=== PATIENT | female | born 1990 | race Caucasian/White ===

== ENCOUNTER 2018-07-10 13:32 | Inpatient (IN) | payer OTHER ==
[~2018-07-10] VITALS: Ht 154.9 cm; Wt 59.6 kg
[2018-07-10] MEDS ORDERED: SODIUM CHLORIDE 0.9% 1,000 ML IV ONE (14:45)
[2018-07-10] MEDS ORDERED: LORAZEPAM 0.5MG TABLET PO ONE (14:45)
[2018-07-10] MEDS ORDERED: CYANOCOBALAMIN 1000MCG/ML VIAL IM ONE (14:45)
[2018-07-10 15:44] LABS: HEMATOCRIT. 40.9 % (36.0-48.0); HEMOGLOBIN. 13.9 g/dL (12.0-16.0); MEAN PLATELET VOLUME 8.9 fl (7.4-10.4); PLATELET 129 x1000/uL (130-400); RED BLOOD CELL COUNT 4.22 mill/uL (4.2-5.4); RED CELL DISTRIBUTION WIDTH 14.2 % (11.6-14.6)
[2018-07-10 15:50] LABS: CHLORIDE 99 mEq/L (98-107)
[2018-07-10 15:53] LABS: ETHANOL BLOOD < 10 mg/dL
[2018-07-10] MEDS ORDERED: ONDANSETRON HCL 4MG/2ML INJ ONE (15:59)
[2018-07-10] MEDS ORDERED: LORAZEPAM 2MG/ML CPJ IV ONE (16:00)
[2018-07-10] MEDS ORDERED: ONDANSETRON HCL 4MG/2ML INJ IV ONE (16:00)
[2018-07-10 16:21] LABS: PLATELET ESTIMATE SLIGHTLY DECREASED
[2018-07-10 16:26] LABS: HEPATITIS B SURFACE ANTIGEN NEGATIVE
[2018-07-10 16:56] LABS: HEPATITIS A AB IGM NEGATIVE (NEGATIVE)
[2018-07-10] MEDS ORDERED: LACTULOSE 20G/30ML UDC PO ONE (17:00)
[2018-07-10] MEDS ORDERED: ONDANSETRON HCL 4MG/2ML INJ IV PRN (17:45)
[2018-07-10] MEDS ORDERED: DIPHENHYDRAMINE 50MG/ML VIAL IV PRN (17:45)
[2018-07-10 22:44] LABS: CREATINE KINASE 145 IU/L (26-192)
[2018-07-10] MEDS ORDERED: LACTULOSE 20G/30ML UDC PO NR (22:55)
[2018-07-10] MEDS: SODIUM CHLORIDE 0.9% 1,000 ML IV SCH (23:12)
[2018-07-11 01:02] LABS: CLARITY URINE CLEAR (CLEAR); COLOR URINE YELLOW (YELLOW); KETONES URINE TRACE (NEGATIVE); LEUKOCYTE ESTERASE URINE 1+ (NEGATIVE); NITRITE URINE NEGATIVE (NEGATIVE); OCCULT BLOOD URINE NEGATIVE (NEGATIVE); PH URINE 8.5 (4.5-8.0); PROTEIN URINE 1+ (NEGATIVE); SPECIFIC GRAVITY URINE 1.024 (1.005-1.030)
[2018-07-11 01:10] LABS: *AMPHETAMINES SCREEN URINE NEGATIVE (NEGATIVE); *BARBITURATES SCREEN URINE NEGATIVE (NEGATIVE); *BENZODIAZEPINES SCREEN URINE NEGATIVE (NEGATIVE); *COCAINE SCREEN URINE NEGATIVE (NEGATIVE)
[2018-07-11 01:11] LABS: METHADONE URINE SCREEN NEGATIVE (NEGATIVE)
[2018-07-11 01:13] LABS: CANNABINOID URINE SCREEN NEGATIVE (NEGATIVE); OPIATES URINE SCREEN NEGATIVE (NEGATIVE); PHENCYCLIDINE URINE SCREEN NEGATIVE (NEGATIVE)
[2018-07-11] MEDS: LORAZEPAM 2MG/ML CPJ IV PRN ×4 (02:19→22:24)
[2018-07-11 06:00] LABS: BASOPHILS % 0.5 % (0.0-2.0); EOSINOPHILS % 0.5 % (0.0-5.0); HEMOGLOBIN. 12.5 g/dL (12.0-16.0); LYMPHOCYTES % 7.9 % (20.0-50.0); MEAN CORPUSCULAR HEMOGLOBIN 32.9 pg (28.0-32.0); MEAN CORPUSCULAR VOLUME 97.5 fL (81.0-99.0); MEAN PLATELET VOLUME 9.1 fl (7.4-10.4); MONOCYTES % 5.2 % (2.0-8.0); NEUTROPHILS % 85.9 % (40.0-76.0); PLATELET 113 x1000/uL (130-400); RED BLOOD CELL COUNT 3.79 mill/uL (4.2-5.4); RED CELL DISTRIBUTION WIDTH 14.3 % (11.6-14.6)
[2018-07-11 06:03] LABS: CHLORIDE 104 mEq/L (98-107)
[2018-07-11 06:13] LABS: CREATINE KINASE 110 IU/L (26-192)
[2018-07-11] MEDS ORDERED: LACTULOSE 20G/30ML UDC PO SCH ×2 (08:30→14:00)
[2018-07-11] MEDS: ENOXAPARIN 40MG/0.4ML SYR SUBCUT SCH (09:00)
[2018-07-11 09:30] VITALS: BP 113/75
[2018-07-11] MEDS: HYDROCODONE/ACETAMINOPHEN 5/325MG TABLET PO PRN ×2 (11:08→18:15)
[2018-07-11 11:45] VITALS: BP 113/75
[2018-07-11 11:57] VITALS: BP 108/71
[2018-07-11] MEDS ORDERED: DEXTROSE 50% WATER 50ML SYRINGE IV PRN (13:15)
[2018-07-11 15:58] VITALS: BP 94/58
[2018-07-11] MEDS: BLOOD SUGAR DIAGNOSTIC STRIP TEST SCH ×2 (16:50→21:30)
[2018-07-11] MEDS: INSULIN LISPRO 100 UNITS/ML SUBCUT SCH ×2 (16:50→21:00)
[2018-07-11] MEDS: LACTULOSE 20G/30ML UDC PO SCH (17:00)
[2018-07-11 20:04] VITALS: BP 99/64
[2018-07-12] VITALS (8 sets, daily range): BP systolic 95–122; BP diastolic 56–83
[2018-07-12] MEDS: HYDROCODONE/ACETAMINOPHEN 5/325MG TABLET PO PRN ×2 (01:27→17:55)
[2018-07-12] MEDS: SODIUM CHLORIDE 0.9% 1,000 ML IV SCH (01:34)
[2018-07-12] MEDS: LORAZEPAM 2MG/ML CPJ IV PRN ×3 (06:10→22:28)
[2018-07-12] MEDS: BLOOD SUGAR DIAGNOSTIC STRIP TEST SCH ×4 (06:47→20:35)
[2018-07-12] MEDS: INSULIN LISPRO 100 UNITS/ML SUBCUT SCH ×4 (07:50→20:36)
[2018-07-12] MEDS: ENOXAPARIN 40MG/0.4ML SYR SUBCUT SCH (08:41)
[2018-07-12 13:07] LABS: HIV SCREEN 4G Non Reactive (Non Reactive)
[2018-07-12] MEDS: LACTULOSE 20G/30ML UDC PO SCH ×2 (13:40→17:00)
[2018-07-13] MEDS: HYDROCODONE/ACETAMINOPHEN 5/325MG TABLET PO PRN ×3 (00:03→23:20)
[2018-07-13 03:53] VITALS: BP 120/78
[2018-07-13] MEDS: SODIUM CHLORIDE 0.9% 1,000 ML IV SCH ×2 (04:00→10:31)
[2018-07-13] MEDS: LORAZEPAM 2MG/ML CPJ IV PRN (05:07)
[2018-07-13] MEDS: BLOOD SUGAR DIAGNOSTIC STRIP TEST SCH ×4 (06:50→20:24)
[2018-07-13] MEDS: INSULIN LISPRO 100 UNITS/ML SUBCUT SCH ×4 (06:50→20:24)
[2018-07-13 07:04] LABS: CHLORIDE 103 mEq/L (98-107)
[2018-07-13 07:30] LABS: BASOPHILS % 0.3 % (0.0-2.0); EOSINOPHILS % 5.3 % (0.0-5.0); HEMATOCRIT. 34.1 % (36.0-48.0); HEMOGLOBIN. 11.4 g/dL (12.0-16.0); MEAN CORPUSCULAR HEMOGLOBIN 33.2 pg (28.0-32.0); MEAN CORPUSCULAR VOLUME 98.9 fL (81.0-99.0); MEAN PLATELET VOLUME 9.9 fl (7.4-10.4); MONOCYTES % 10.6 % (2.0-8.0); NEUTROPHILS % 61.8 % (40.0-76.0); PLATELET 101 x1000/uL (130-400); RED BLOOD CELL COUNT 3.45 mill/uL (4.2-5.4); RED CELL DISTRIBUTION WIDTH 13.9 % (11.6-14.6)
[2018-07-13 08:00] VITALS: BP 98/58
[2018-07-13] MEDS: LACTULOSE 20G/30ML UDC PO SCH ×2 (08:45→19:03)
[2018-07-13] MEDS: ENOXAPARIN 40MG/0.4ML SYR SUBCUT SCH (08:46)
[2018-07-13] MEDS: LORAZEPAM 1MG TABLET PO PRN ×2 (10:49→19:04)
[2018-07-13 11:52] VITALS: BP 102/65
[2018-07-13 16:27] VITALS: BP 97/54
[2018-07-13] MEDS: METOCLOPRAMIDE HCL 10MG/2ML VIAL IV SCH ×2 (19:04→23:19)
[2018-07-13 20:00] VITALS: BP 102/58
[2018-07-14] VITALS: BP 98/56
[2018-07-14] MEDS: LORAZEPAM 1MG TABLET PO PRN ×2 (03:15→12:29)
[2018-07-14 04:00] VITALS: BP 104/65
[2018-07-14] MEDS: METOCLOPRAMIDE HCL 10MG/2ML VIAL IV SCH ×2 (05:36→11:35)
[2018-07-14] MEDS: BLOOD SUGAR DIAGNOSTIC STRIP TEST SCH ×2 (06:33→11:35)
[2018-07-14] MEDS: INSULIN LISPRO 100 UNITS/ML SUBCUT SCH ×2 (07:50→11:39)
[2018-07-14 08:00] VITALS: BP 98/58
[2018-07-14] MEDS: ENOXAPARIN 40MG/0.4ML SYR SUBCUT SCH (09:32)
[2018-07-14] MEDS: LACTULOSE 20G/30ML UDC PO SCH (09:32)
[2018-07-14] MEDS: SODIUM CHLORIDE 0.9% 1,000 ML IV SCH (09:34)
[2018-07-14] MEDS: HYDROCODONE/ACETAMINOPHEN 5/325MG TABLET PO PRN (09:37)
[2018-07-14 11:12] LABS: CHLORIDE 105 mEq/L (98-107)
[2018-07-14 11:23] LABS: BASOPHILS % 0.5 % (0.0-2.0); HEMOGLOBIN. 11.6 g/dL (12.0-16.0); LYMPHOCYTES % 19.7 % (20.0-50.0); MEAN CORPUSCULAR VOLUME 99.2 fL (81.0-99.0); MEAN PLATELET VOLUME 9.8 fl (7.4-10.4); NEUTROPHILS % 61.8 % (40.0-76.0); PLATELET 132 x1000/uL (130-400); RED BLOOD CELL COUNT 3.53 mill/uL (4.2-5.4)
[2018-07-14 11:59] VITALS: BP 112/66
[2018-07-14] MEDS ORDERED: METO-293 MT (12:19)
[2018-07-14] MEDS ORDERED: LORA-249 PO (12:19)
[2018-07-14 13:45] VITALS: BP 112/66
== END 2018-07-14 14:20 | disposition home or self-care (01) | DRG 279 ==
LOC: ER 13:32 → 6WST 17:01 → EDBEDREQTM 17:03 → EDBEDREQ 17:03 → ENRESERV 07-11 08:00
PROVIDERS: ADMIT Internal Medicine; ATTEND Internal Medicine
DX: K72.00 Acute and subacute hepatic failure without coma (principal); E72.20 Disorder of urea cycle metabolism, unspecified; R65.10 Systemic inflammatory response syndrome (SIRS) of non-infectious origin without acute organ dysfunction; K70.0 Alcoholic fatty liver; F10.239 Alcohol dependence with withdrawal, unspecified; N39.0 Urinary tract infection, site not specified; Y90.9 Presence of alcohol in blood, level not specified; F32.9 Major depressive disorder, single episode, unspecified; E86.0 Dehydration; K21.9 Gastro-esophageal reflux disease without esophagitis; Z90.49 Acquired absence of other specified parts of digestive tract; E87.6 Hypokalemia
CPT/HCPCS: 36415; 71045; 74018; 74181; 76700; 80048; 80076; 80305; 81025; 82140; 82248; 82550; 82962; 86705; 86709; 86803; 87340; 87389; 93005; 93970; 96372; 96374; 96375; 97110; 97162; 97165; 99285; G0482; J1650; J2060; J2405; J2765; J3420; J7030

== ENCOUNTER 2018-12-02 17:15 | Emergency (ER) | payer OTHER ==
[~2018-12-02] VITALS: Ht 154.9 cm; Wt 53.0 kg
[~2018-12-02 17:15] MED LIST: LORA-249 PO; METO-293 MT
[2018-12-02] MEDS ORDERED: ONDANSETRON HCL 4MG/2ML INJ IV STA (17:51)
[2018-12-02] MEDS ORDERED: FAMOTIDINE 20MG/2ML VIAL IV STA (17:51)
[2018-12-02] MEDS ORDERED: SODIUM CHLORIDE 0.9% 1,000 ML IV ONE (17:51)
[2018-12-02] MEDS ORDERED: LORAZEPAM 2MG/ML CPJ IV ONE (18:15)
[2018-12-02 18:21] LABS: CLARITY URINE CLOUDY (CLEAR); COLOR URINE YELLOW (YELLOW); KETONES URINE NEGATIVE (NEGATIVE); LEUKOCYTE ESTERASE URINE TRACE (NEGATIVE); NITRITE URINE POSITIVE (NEGATIVE); OCCULT BLOOD URINE TRACE (NEGATIVE); PROTEIN URINE NEGATIVE (NEGATIVE); SPECIFIC GRAVITY URINE 1.013 (1.005-1.030); UROBILINOGEN URINE 0.2 E.U./dL (0.2-1.0)
[2018-12-02 18:30] LABS: *AMPHETAMINES SCREEN URINE NEGATIVE (NEGATIVE); *BARBITURATES SCREEN URINE NEGATIVE (NEGATIVE); *COCAINE SCREEN URINE NEGATIVE (NEGATIVE); METHADONE URINE SCREEN NEGATIVE (NEGATIVE)
[2018-12-02 18:31] LABS: CANNABINOID URINE SCREEN NEGATIVE (NEGATIVE); OPIATES URINE SCREEN NEGATIVE (NEGATIVE); PHENCYCLIDINE URINE SCREEN NEGATIVE (NEGATIVE)
[2018-12-02 18:32] LABS: *BENZODIAZEPINES SCREEN URINE PRESUMTIVE POSITIVE (NEGATIVE)
[2018-12-02 18:39] LABS: BASOPHILS % 0.7 % (0.0-2.0); EOSINOPHILS % 1.4 % (0.0-5.0); HEMATOCRIT. 41.5 % (36.0-48.0); HEMOGLOBIN. 14.2 g/dL (12.0-16.0); LYMPHOCYTES % 41.5 % (20.0-50.0); MEAN CORPUSCULAR HEMOGLOBIN 32.1 pg (28.0-32.0); MEAN CORPUSCULAR VOLUME 93.5 fL (81.0-99.0); MEAN PLATELET VOLUME 8.2 fl (7.4-10.4); MONOCYTES % 8.6 % (2.0-8.0); NEUTROPHILS % 47.8 % (40.0-76.0); PLATELET 189 x1000/uL (130-400); RED BLOOD CELL COUNT 4.44 mill/uL (4.2-5.4); RED CELL DISTRIBUTION WIDTH 15.3 % (11.6-14.6)
[2018-12-02 18:41] LABS: CHLORIDE 108 mEq/L (98-107)
[2018-12-02 18:44] LABS: PROTHROMBIN TIME 10.4 sec (9.6-11.0)
[2018-12-02 18:49] LABS: HCG SCREEN NEGATIVE
[2018-12-02 19:06] LABS: ETHANOL BLOOD 325 mg/dL
[2018-12-02] MEDS ORDERED: CEFTRIAXONE 1 G PREMIX 50 ML IV ONE (19:45)
[2018-12-02 23:16] VITALS: BP 115/73
== END 2018-12-02 23:51 | disposition home or self-care (01) ==
LOC: ER 17:41
DX: F10.229 Alcohol dependence with intoxication, unspecified (principal); R10.13 Epigastric pain; E87.8 Other disorders of electrolyte and fluid balance, not elsewhere classified; N39.0 Urinary tract infection, site not specified; R11.2 Nausea with vomiting, unspecified; F17.210 Nicotine dependence, cigarettes, uncomplicated; Y90.8 Blood alcohol level of 240 mg/100 ml or more
CPT/HCPCS: 36415; 80053; 80305; 80320; 81003; 81025; 83690; 84703; 85025; 85610; 96361; 96374; 96375; 99283; J0696; J2060; J2405; J3490; J7030; Z7610; G0480

== ENCOUNTER 2018-12-13 16:18 | Emergency (ER) | payer OTHER ==
[~2018-12-13] VITALS: Ht 160 cm; Wt 62.0 kg
[2018-12-13] MEDS ORDERED: ONDANSETRON HCL 4MG/2ML INJ IV STA (16:42)
[2018-12-13] MEDS ORDERED: SODIUM CHLORIDE 0.9% 1,000 ML IV ONE (16:42)
[2018-12-13 17:08] LABS: BASOPHILS % 1.3 % (0.0-2.0); EOSINOPHILS % 3.7 % (0.0-5.0); HEMATOCRIT. 42.9 % (36.0-48.0); HEMOGLOBIN. 14.7 g/dL (12.0-16.0); LYMPHOCYTES % 30.1 % (20.0-50.0); MEAN CORPUSCULAR HEMOGLOBIN 32.2 pg (28.0-32.0); MEAN CORPUSCULAR VOLUME 94.2 fL (81.0-99.0); MEAN PLATELET VOLUME 8.1 fl (7.4-10.4); MONOCYTES % 9.2 % (2.0-8.0); NEUTROPHILS % 55.7 % (40.0-76.0); PLATELET 216 x1000/uL (130-400); RED BLOOD CELL COUNT 4.55 mill/uL (4.2-5.4); RED CELL DISTRIBUTION WIDTH 15.2 % (11.6-14.6)
[2018-12-13 17:15] LABS: CHLORIDE 108 mEq/L (98-107)
[2018-12-13 17:15] LABS: CLARITY URINE CLEAR (CLEAR); COLOR URINE YELLOW (YELLOW); KETONES URINE NEGATIVE (NEGATIVE); LEUKOCYTE ESTERASE URINE NEGATIVE (NEGATIVE); NITRITE URINE NEGATIVE (NEGATIVE); OCCULT BLOOD URINE TRACE (NEGATIVE); PROTEIN URINE NEGATIVE (NEGATIVE); SPECIFIC GRAVITY URINE 1.007 (1.005-1.030); UROBILINOGEN URINE 0.2 E.U./dL (0.2-1.0)
[2018-12-13 17:16] LABS: INR 1.1; PROTHROMBIN TIME 10.8 sec (9.6-11.0)
[2018-12-13] MEDS ORDERED: CHLORDIAZEPOXIDE 25MG CAPSULE PO ONE (18:15)
[2018-12-13] MEDS ORDERED: KETOROLAC 30MG/ML VIAL IV ONE (19:15)
[2018-12-13 19:38] VITALS: BP 110/82
== END 2018-12-13 19:54 | disposition home or self-care (01) ==
LOC: ER 16:18
DX: K76.0 Fatty (change of) liver, not elsewhere classified (principal); F10.239 Alcohol dependence with withdrawal, unspecified; Y90.9 Presence of alcohol in blood, level not specified
CPT/HCPCS: 36415; 76705; 80053; 81003; 81025; 83690; 85025; 85610; 96374; 96375; 99284; J1885; J2405; J7030

== ENCOUNTER 2019-01-04 22:12 | Emergency (ER) | payer OTHER ==
[~2019-01-04] VITALS: Ht 162.6 cm; Wt 57.0 kg
[2019-01-04] MEDS ORDERED: LORAZEPAM 2MG/ML CPJ IV STA (23:15)
[2019-01-04] MEDS ORDERED: ONDANSETRON HCL 4MG/2ML INJ IV STA (23:15)
[2019-01-04] MEDS ORDERED: MORPHINE SULFATE 4 MG/ML CPJ (NOT FOR IM USE) IV STA (23:15)
[2019-01-04] MEDS ORDERED: SODIUM CHLORIDE 0.9% 1,000 ML IV ONE (23:15)
[2019-01-04 23:56] LABS: BASOPHILS % 0.8 % (0.0-2.0); HEMATOCRIT. 42.8 % (36.0-48.0); HEMOGLOBIN. 14.9 g/dL (12.0-16.0); LYMPHOCYTES % 39.8 % (20.0-50.0); MEAN CORPUSCULAR HEMOGLOBIN 32.9 pg (28.0-32.0); MEAN CORPUSCULAR VOLUME 94.7 fL (81.0-99.0); MEAN PLATELET VOLUME 8.4 fl (7.4-10.4); NEUTROPHILS % 51.4 % (40.0-76.0); PLATELET 311 x1000/uL (130-400); RED BLOOD CELL COUNT 4.52 mill/uL (4.2-5.4); RED CELL DISTRIBUTION WIDTH 15.6 % (11.6-14.6)
[2019-01-04 23:58] LABS: CHLORIDE 105 mEq/L (98-107)
[2019-01-05 00:06] LABS: CREATINE KINASE 133 IU/L (26-192)
[2019-01-05 00:13] LABS: HCG SCREEN NEGATIVE
[2019-01-05 00:32] LABS: CLARITY URINE CLOUDY (CLEAR); COLOR URINE YELLOW (YELLOW); KETONES URINE NEGATIVE (NEGATIVE); LEUKOCYTE ESTERASE URINE 1+ (NEGATIVE); NITRITE URINE POSITIVE (NEGATIVE); OCCULT BLOOD URINE 1+ (NEGATIVE); PH URINE 6.5 (4.5-8.0); PROTEIN URINE NEGATIVE (NEGATIVE); SPECIFIC GRAVITY URINE 1.013 (1.005-1.030); UROBILINOGEN URINE 0.2 E.U./dL (0.2-1.0)
[2019-01-05 00:35] LABS: ETHANOL BLOOD 349 mg/dL
[2019-01-05] MEDS ORDERED: SODIUM CHLORIDE 0.9% 1,000 ML IV ONE (01:03)
[2019-01-05] MEDS ORDERED: KETOROLAC 30MG/ML VIAL IV ONE (01:15)
[2019-01-05] MEDS ORDERED: CEFTRIAXONE 1 G PREMIX 50 ML IV ONE (01:15)
[2019-01-05 02:34] VITALS: BP 118/63
[2019-01-05 03:11] LABS: *AMPHETAMINES SCREEN URINE NEGATIVE (NEGATIVE); *BARBITURATES SCREEN URINE NEGATIVE (NEGATIVE); *BENZODIAZEPINES SCREEN URINE NEGATIVE (NEGATIVE); *COCAINE SCREEN URINE NEGATIVE (NEGATIVE); CANNABINOID URINE SCREEN NEGATIVE (NEGATIVE); METHADONE URINE SCREEN NEGATIVE (NEGATIVE); OPIATES URINE SCREEN NEGATIVE (NEGATIVE); PHENCYCLIDINE URINE SCREEN NEGATIVE (NEGATIVE)
== END 2019-01-05 02:39 | disposition home or self-care (01) ==
LOC: ER 22:26
DX: T51.0X1A Toxic effect of ethanol, accidental (unintentional), initial encounter (principal); Y92.89 Other specified places as the place of occurrence of the external cause; N39.0 Urinary tract infection, site not specified; K29.70 Gastritis, unspecified, without bleeding
CPT/HCPCS: 36415; 80053; 80305; 80320; 81003; 81025; 82550; 83690; 84703; 85025; 93005; 96365; 96375; 99284; J0696; J1885; J2060; J2270; J2405; J7030; G0480

== ENCOUNTER 2019-01-25 14:46 | Emergency (ER) | payer OTHER ==
[~2019-01-25] VITALS: Ht 165.1 cm; Wt 80.0 kg
[2019-01-25] MEDS ORDERED: FOLIC ACID 1 MG, THIAMINE HCL 100 MG, MVI, ADULT NO.1 10 ML in DEXTROSE 5% WATER 1,000 ML IV ONE ×4 (15:30)
[2019-01-25] MEDS ORDERED: ONDANSETRON HCL 4MG/2ML INJ IV ONE (15:30)
[2019-01-25 15:46] LABS: BASOPHILS % 1.3 % (0.0-2.0); EOSINOPHILS % 2.7 % (0.0-5.0); HEMATOCRIT. 42.2 % (36.0-48.0); HEMOGLOBIN. 14.7 g/dL (12.0-16.0); LYMPHOCYTES % 27.1 % (20.0-50.0); MEAN CORPUSCULAR HEMOGLOBIN 33.1 pg (28.0-32.0); MEAN CORPUSCULAR VOLUME 95.4 fL (81.0-99.0); MEAN PLATELET VOLUME 8.6 fl (7.4-10.4); MONOCYTES % 6.4 % (2.0-8.0); NEUTROPHILS % 62.5 % (40.0-76.0); PLATELET 214 x1000/uL (130-400); RED BLOOD CELL COUNT 4.43 mill/uL (4.2-5.4); RED CELL DISTRIBUTION WIDTH 15.1 % (11.6-14.6)
[2019-01-25 15:49] LABS: CHLORIDE 108 mEq/L (98-107)
[2019-01-25 16:02] LABS: HCG SCREEN NEGATIVE
[2019-01-25] MEDS ORDERED: LORAZEPAM 2MG/ML CPJ IV ONE (16:15)
[2019-01-25 16:32] LABS: ETHANOL BLOOD 400 mg/dL
[2019-01-25 16:43] LABS: CREATINE KINASE 154 IU/L (26-192)
[2019-01-25 16:44] LABS: CREATINE KINASE MB FRACTION < 1.0 ng/mL (0.5-3.6)
[2019-01-25 16:53] LABS: CLARITY URINE CLEAR (CLEAR); COLOR URINE YELLOW (YELLOW); KETONES URINE NEGATIVE (NEGATIVE); LEUKOCYTE ESTERASE URINE NEGATIVE (NEGATIVE); NITRITE URINE NEGATIVE (NEGATIVE); OCCULT BLOOD URINE NEGATIVE (NEGATIVE); PROTEIN URINE NEGATIVE (NEGATIVE); SPECIFIC GRAVITY URINE 1.009 (1.005-1.030); UROBILINOGEN URINE 0.2 E.U./dL (0.2-1.0)
[2019-01-25 17:04] LABS: *AMPHETAMINES SCREEN URINE NEGATIVE (NEGATIVE); *BARBITURATES SCREEN URINE NEGATIVE (NEGATIVE); *COCAINE SCREEN URINE NEGATIVE (NEGATIVE); CANNABINOID URINE SCREEN NEGATIVE (NEGATIVE); METHADONE URINE SCREEN NEGATIVE (NEGATIVE); OPIATES URINE SCREEN NEGATIVE (NEGATIVE); PHENCYCLIDINE URINE SCREEN NEGATIVE (NEGATIVE)
[2019-01-25 17:09] LABS: *BENZODIAZEPINES SCREEN URINE PRESUMTIVE POSITIVE (NEGATIVE)
[2019-01-25 22:45] VITALS: BP 109/77
== END 2019-01-25 22:50 | disposition home or self-care (01) ==
LOC: ER 14:46
DX: T51.0X1A Toxic effect of ethanol, accidental (unintentional), initial encounter (principal); G92 Toxic encephalopathy; E87.8 Other disorders of electrolyte and fluid balance, not elsewhere classified; F41.9 Anxiety disorder, unspecified; F12.10 Cannabis abuse, uncomplicated; F17.210 Nicotine dependence, cigarettes, uncomplicated; Z71.6 Tobacco abuse counseling; Y92.018 Other place in single-family (private) house as the place of occurrence of the external cause
CPT/HCPCS: 36415; 80053; 80305; 80307; 80320; 80329; 81003; 81025; 82550; 82553; 83735; 84703; 85025; 93005; 96365; 96366; 96375; 99284; 99406; J2060; J2405; J3411; J3490; J7070; G0480

== ENCOUNTER 2019-02-21 00:26 | Emergency (ER) | payer OTHER ==
[~2019-02-21] VITALS: Ht 167.6 cm; Wt 68.0 kg
[~2019-02-21 00:26] MED LIST changes: +ACET-2853 MT; +L25 PO; -LORA-249 PO; +ONDA4TAB11 PO
[2019-02-21] MEDS ORDERED: SODIUM CHLORIDE 0.9% 1,000 ML IV ONE ×2 (02:10→06:00)
[2019-02-21 02:24] LABS: BASOPHILS % 1.7 % (0.0-2.0); EOSINOPHILS % 2.9 % (0.0-5.0); HEMATOCRIT. 41.7 % (36.0-48.0); HEMOGLOBIN. 14.4 g/dL (12.0-16.0); LYMPHOCYTES % 51.3 % (20.0-50.0); MEAN CORPUSCULAR HEMOGLOBIN 33.2 pg (28.0-32.0); MEAN CORPUSCULAR VOLUME 96.2 fL (81.0-99.0); MEAN PLATELET VOLUME 8.5 fl (7.4-10.4); MONOCYTES % 9.1 % (2.0-8.0); PLATELET 370 x1000/uL (130-400); RED BLOOD CELL COUNT 4.33 mill/uL (4.2-5.4); RED CELL DISTRIBUTION WIDTH 14.6 % (11.6-14.6)
[2019-02-21 02:34] LABS: CLARITY URINE CLEAR (CLEAR); COLOR URINE YELLOW (YELLOW); KETONES URINE NEGATIVE (NEGATIVE); LEUKOCYTE ESTERASE URINE TRACE (NEGATIVE); NITRITE URINE POSITIVE (NEGATIVE); OCCULT BLOOD URINE NEGATIVE (NEGATIVE); PH URINE 7.5 (4.5-8.0); PROTEIN URINE NEGATIVE (NEGATIVE); SPECIFIC GRAVITY URINE 1.007 (1.005-1.030); UROBILINOGEN URINE 0.2 E.U./dL (0.2-1.0)
[2019-02-21 02:37] LABS: CHLORIDE 108 mEq/L (98-107)
[2019-02-21 02:38] LABS: HCG SCREEN NEGATIVE
[2019-02-21 02:58] LABS: *AMPHETAMINES SCREEN URINE NEGATIVE (NEGATIVE); *BARBITURATES SCREEN URINE NEGATIVE (NEGATIVE); *COCAINE SCREEN URINE NEGATIVE (NEGATIVE); METHADONE URINE SCREEN NEGATIVE (NEGATIVE); OPIATES URINE SCREEN NEGATIVE (NEGATIVE)
[2019-02-21 02:59] LABS: CANNABINOID URINE SCREEN NEGATIVE (NEGATIVE); PHENCYCLIDINE URINE SCREEN NEGATIVE (NEGATIVE)
[2019-02-21 03:05] LABS: *BENZODIAZEPINES SCREEN URINE PRESUMTIVE POSITIVE (NEGATIVE)
[2019-02-21 03:42] LABS: ETHANOL BLOOD 446 mg/dL
[2019-02-21] MEDS ORDERED: CEFTRIAXONE 1 G PREMIX 50 ML IV ONE (06:00)
[2019-02-21 09:40] VITALS: BP 124/85
[2019-02-21] MEDS ORDERED: ONDANSETRON HCL 4MG TABLET PO ONE (09:45)
== END 2019-02-21 10:01 | disposition home or self-care (01) ==
LOC: ER 00:26
DX: F10.229 Alcohol dependence with intoxication, unspecified (principal); N39.0 Urinary tract infection, site not specified; F41.9 Anxiety disorder, unspecified; F32.9 Major depressive disorder, single episode, unspecified; F17.210 Nicotine dependence, cigarettes, uncomplicated; Y90.8 Blood alcohol level of 240 mg/100 ml or more
CPT/HCPCS: 36415; 80053; 80305; 80320; 81003; 81025; 83690; 84703; 85025; 96365; 99283; J0696; J7030; Q0162; G0480

== ENCOUNTER 2019-08-09 14:47 | Emergency (ER) | payer OTHER ==
[~2019-08-09] VITALS: Ht 165.1 cm; Wt 66.0 kg
[~2019-08-09 14:47] MED LIST changes: -ACET-2853 MT; +ACET650T37 MT
[2019-08-09 18:19] VITALS: BP 107/79
== END 2019-08-09 18:35 | disposition left against medical advice (07) ==
LOC: ER 14:59
DX: Z53.21 Procedure and treatment not carried out due to patient leaving prior to being seen by health care provider (principal)

== ENCOUNTER 2019-11-28 21:05 | Emergency (ER) | payer OTHER ==
[~2019-11-28] VITALS: Ht 165.1 cm; Wt 60.0 kg
[2019-11-28] MEDS ORDERED: SODIUM CHLORIDE 0.9% 1,000 ML IV ONE (22:55)
[2019-11-28] MEDS ORDERED: ONDANSETRON HCL 4MG/2ML INJ IV STA (22:55)
[2019-11-28 23:30] LABS: BASOPHILS % 0.9 % (0.0-2.0); EOSINOPHILS % 2.1 % (0.0-5.0); HEMOGLOBIN. 14.9 g/dL (12.0-16.0); LYMPHOCYTES % 37.1 % (20.0-50.0); MEAN CORPUSCULAR HEMOGLOBIN 32.7 pg (28.0-32.0); MEAN CORPUSCULAR VOLUME 94.5 fL (81.0-99.0); MEAN PLATELET VOLUME 8.7 fl (7.4-10.4); MONOCYTES % 7.6 % (2.0-8.0); NEUTROPHILS % 52.3 % (40.0-76.0); PLATELET 286 x1000/uL (130-400); RED BLOOD CELL COUNT 4.55 mill/uL (4.2-5.4); RED CELL DISTRIBUTION WIDTH 14.7 % (11.6-14.6)
[2019-11-28] MEDS ORDERED: AZITHROMYCIN 500 MG TABLET PO ONE (23:30)
[2019-11-28] MEDS ORDERED: CEFTRIAXONE SODIUM 250 MG/VIAL IM ONE (23:30)
[2019-11-28 23:33] LABS: CHLORIDE 106 mEq/L (98-107)
[2019-11-28 23:40] LABS: CLARITY URINE CLEAR (CLEAR); COLOR URINE YELLOW (YELLOW); KETONES URINE NEGATIVE (NEGATIVE); LEUKOCYTE ESTERASE URINE NEGATIVE (NEGATIVE); NITRITE URINE NEGATIVE (NEGATIVE); OCCULT BLOOD URINE NEGATIVE (NEGATIVE); PH URINE 7.5 (4.5-8.0); PROTEIN URINE NEGATIVE (NEGATIVE); SPECIFIC GRAVITY URINE 1.008 (1.005-1.030); UROBILINOGEN URINE 0.2 E.U./dL (0.2-1.0)
[2019-11-29 00:02] LABS: *AMPHETAMINES SCREEN URINE NEGATIVE (NEGATIVE); *BARBITURATES SCREEN URINE NEGATIVE (NEGATIVE); *BENZODIAZEPINES SCREEN URINE NEGATIVE (NEGATIVE); *COCAINE SCREEN URINE NEGATIVE (NEGATIVE); METHADONE URINE SCREEN NEGATIVE (NEGATIVE); OPIATES URINE SCREEN NEGATIVE (NEGATIVE)
[2019-11-29 00:04] LABS: CANNABINOID URINE SCREEN NEGATIVE (NEGATIVE); PHENCYCLIDINE URINE SCREEN NEGATIVE (NEGATIVE)
[2019-11-29 00:15] LABS: ETHANOL BLOOD 383 mg/dL
[2019-11-29 05:30] VITALS: BP 105/70
== END 2019-11-29 05:53 | disposition home or self-care (01) ==
LOC: ER 21:05
DX: F10.229 Alcohol dependence with intoxication, unspecified (principal); F31.9 Bipolar disorder, unspecified; Y90.8 Blood alcohol level of 240 mg/100 ml or more
CPT/HCPCS: 36415; 80053; 80305; 80320; 81003; 81025; 83690; 85025; 86703; 96372; 96374; 99285; J0696; J2405; J7030; G0480

== ENCOUNTER 2020-02-18 09:35 | Emergency (ER) | payer OTHER ==
[~2020-02-18] VITALS: Ht 152.4 cm; Wt 58.0 kg
[2020-02-18] MEDS ORDERED: SODIUM CHLORIDE 0.9% 1,000 ML IV ONE (10:22)
[2020-02-18] MEDS ORDERED: IBUPROFEN 600MG TABLET PO ONE (10:30)
[2020-02-18] MEDS ORDERED: LORAZEPAM 0.5MG TABLET PO ONE ×2 (10:30→13:45)
[2020-02-18 10:34] LABS: BASOPHILS % 0.9 % (0.0-2.0); EOSINOPHILS % 1.6 % (0.0-5.0); HEMATOCRIT. 44.3 % (36.0-48.0); HEMOGLOBIN. 15.1 g/dL (12.0-16.0); LYMPHOCYTES % 39.9 % (20.0-50.0); MEAN CORPUSCULAR HEMOGLOBIN 32.2 pg (28.0-32.0); MEAN CORPUSCULAR VOLUME 94.8 fL (81.0-99.0); MEAN PLATELET VOLUME 8.6 fl (7.4-10.4); MONOCYTES % 8.6 % (2.0-8.0); PLATELET 203 x1000/uL (130-400); RED BLOOD CELL COUNT 4.68 mill/uL (4.2-5.4); RED CELL DISTRIBUTION WIDTH 13.5 % (11.6-14.6)
[2020-02-18 10:37] LABS: CHLORIDE 103 mEq/L (98-107)
[2020-02-18 10:57] LABS: ETHANOL BLOOD 452 mg/dL
[2020-02-18] MEDS ORDERED: FOLIC ACID 1 MG, THIAMINE HCL 100 MG, MVI, ADULT NO.1 10 ML in DEXTROSE 5% WATER 1,000 ML IV ONE ×4 (11:00)
[2020-02-18] MEDS ORDERED: CHLORDIAZEPOXIDE 25MG CAPSULE PO ONE (11:00)
[2020-02-18] MEDS ORDERED: ONDANSETRON HCL 4MG/2ML INJ IV ONE (13:45)
[2020-02-18] MEDS ORDERED: POTASSIUM CHLORIDE 20MEQ TABLET SR PO ONE (13:45)
[2020-02-18 13:48] LABS: CLARITY URINE CLOUDY (CLEAR); COLOR URINE DARK YELLOW (YELLOW); KETONES URINE TRACE (NEGATIVE); LEUKOCYTE ESTERASE URINE TRACE (NEGATIVE); NITRITE URINE POSITIVE (NEGATIVE); OCCULT BLOOD URINE 1+ (NEGATIVE); PROTEIN URINE 1+ (NEGATIVE); SPECIFIC GRAVITY URINE 1.022 (1.005-1.030)
[2020-02-18 14:30] LABS: *AMPHETAMINES SCREEN URINE NEGATIVE (NEGATIVE); *BARBITURATES SCREEN URINE NEGATIVE (NEGATIVE); *BENZODIAZEPINES SCREEN URINE NEGATIVE (NEGATIVE)
[2020-02-18 14:31] LABS: CANNABINOID URINE SCREEN NEGATIVE (NEGATIVE); METHADONE URINE SCREEN NEGATIVE (NEGATIVE); OPIATES URINE SCREEN NEGATIVE (NEGATIVE); PHENCYCLIDINE URINE SCREEN NEGATIVE (NEGATIVE)
[2020-02-18 14:32] LABS: *COCAINE SCREEN URINE NEGATIVE (NEGATIVE)
[2020-02-18] MEDS ORDERED: CEPHALEXIN 250MG CAPSULE PO ONE (15:15)
[2020-02-18] MEDS: SERTRALINE HCL 50MG TABLET PO SCH (17:58)
[2020-02-18] MEDS ORDERED: ONDANSETRON 4MG ODT PO ONE (20:45)
[2020-02-18] MEDS: LORAZEPAM 1MG TABLET PO PRN (20:52)
[2020-02-18] MEDS: GABAPENTIN 100MG CAPSULE PO SCH (22:00)
[2020-02-19] MEDS: GABAPENTIN 100MG CAPSULE PO SCH ×2 (05:59→14:58)
[2020-02-19] MEDS: SERTRALINE HCL 50MG TABLET PO SCH (09:00)
[2020-02-19] MEDS: LORAZEPAM 1MG TABLET PO PRN ×2 (09:49→13:57)
[2020-02-19 13:30] VITALS: BP 130/90
== END 2020-02-19 15:45 | disposition home or self-care (01) ==
LOC: ER 09:35
DX: F32.9 Major depressive disorder, single episode, unspecified (principal); T51.0X1A Toxic effect of ethanol, accidental (unintentional), initial encounter; R45.851 Suicidal ideations; Z11.59 Encounter for screening for other viral diseases; F10.239 Alcohol dependence with withdrawal, unspecified; F10.229 Alcohol dependence with intoxication, unspecified; Y90.8 Blood alcohol level of 240 mg/100 ml or more; R51 Headache; E87.6 Hypokalemia; R00.0 Tachycardia, unspecified; Y92.89 Other specified places as the place of occurrence of the external cause
CPT/HCPCS: 36415; 80053; 80305; 80307; 80320; 80329; 81003; 81025; 85025; 87086; 87635; 93005; 96361; 96365; 96375; 99285; C9803; J2405; J3411; J3490; J7030; J7070; Q0162; G0480

== ENCOUNTER 2020-03-12 20:29 | Emergency (ER) | payer OTHER ==
[~2020-03-12] VITALS: Ht 154.9 cm; Wt 59.0 kg
[2020-03-12] MEDS ORDERED: SODIUM CHLORIDE 0.9% 1,000 ML IV ONE (21:40)
[2020-03-12 22:08] LABS: BASOPHILS % 0.8 % (0.0-2.0); EOSINOPHILS % 0.9 % (0.0-5.0); HEMATOCRIT. 41.9 % (36.0-48.0); HEMOGLOBIN. 14.3 g/dL (12.0-16.0); LYMPHOCYTES % 33.1 % (20.0-50.0); MEAN CORPUSCULAR HEMOGLOBIN 32.4 pg (28.0-32.0); MEAN CORPUSCULAR VOLUME 94.8 fL (81.0-99.0); MEAN PLATELET VOLUME 8.9 fl (7.4-10.4); MONOCYTES % 6.1 % (2.0-8.0); NEUTROPHILS % 59.1 % (40.0-76.0); PLATELET 262 x1000/uL (130-400); RED BLOOD CELL COUNT 4.42 mill/uL (4.2-5.4); RED CELL DISTRIBUTION WIDTH 14.1 % (11.6-14.6)
[2020-03-12 22:10] LABS: CHLORIDE 108 mEq/L (98-107)
[2020-03-12 22:10] LABS: CLARITY URINE CLEAR (CLEAR); COLOR URINE YELLOW (YELLOW); KETONES URINE NEGATIVE (NEGATIVE); LEUKOCYTE ESTERASE URINE NEGATIVE (NEGATIVE); NITRITE URINE NEGATIVE (NEGATIVE); OCCULT BLOOD URINE NEGATIVE (NEGATIVE); PROTEIN URINE NEGATIVE (NEGATIVE); SPECIFIC GRAVITY URINE 1.007 (1.005-1.030); UROBILINOGEN URINE 0.2 E.U./dL (0.2-1.0)
[2020-03-12 22:22] LABS: HCG SCREEN NEGATIVE
[2020-03-12 22:35] LABS: *AMPHETAMINES SCREEN URINE NEGATIVE (NEGATIVE); *BARBITURATES SCREEN URINE NEGATIVE (NEGATIVE); *BENZODIAZEPINES SCREEN URINE NEGATIVE (NEGATIVE); *COCAINE SCREEN URINE NEGATIVE (NEGATIVE); METHADONE URINE SCREEN NEGATIVE (NEGATIVE); OPIATES URINE SCREEN NEGATIVE (NEGATIVE)
[2020-03-12 22:36] LABS: CANNABINOID URINE SCREEN NEGATIVE (NEGATIVE); PHENCYCLIDINE URINE SCREEN NEGATIVE (NEGATIVE)
[2020-03-12 22:39] LABS: ETHANOL BLOOD 373 mg/dL
[2020-03-12] MEDS ORDERED: KETOROLAC 30MG/ML VIAL IV ONE (23:15)
[2020-03-12] MEDS ORDERED: FAMOTIDINE 20MG/2ML VIAL IV ONE (23:15)
[2020-03-13 02:12] VITALS: BP 114/78
== END 2020-03-13 02:12 | disposition home or self-care (01) ==
LOC: ER 20:29
DX: R10.13 Epigastric pain (principal); F10.229 Alcohol dependence with intoxication, unspecified; F12.10 Cannabis abuse, uncomplicated; F17.210 Nicotine dependence, cigarettes, uncomplicated; Y90.8 Blood alcohol level of 240 mg/100 ml or more; Z90.49 Acquired absence of other specified parts of digestive tract
CPT/HCPCS: 36415; 80053; 80305; 80320; 81003; 81025; 83690; 84703; 85025; 93005; 96361; 96374; 96375; 99284; J1885; J3490; J7030; G0480

== ENCOUNTER 2020-04-06 22:35 | Emergency (ER) | payer OTHER ==
[~2020-04-06] VITALS: Ht 154.9 cm; Wt 61.0 kg
[2020-04-07 01:57] LABS: CLARITY URINE CLEAR (CLEAR); COLOR URINE YELLOW (YELLOW); KETONES URINE NEGATIVE (NEGATIVE); LEUKOCYTE ESTERASE URINE 1+ (NEGATIVE); NITRITE URINE NEGATIVE (NEGATIVE); OCCULT BLOOD URINE NEGATIVE (NEGATIVE); PH URINE 6.5 (4.5-8.0); PROTEIN URINE NEGATIVE (NEGATIVE); SPECIFIC GRAVITY URINE 1.008 (1.005-1.030); UROBILINOGEN URINE 0.2 E.U./dL (0.2-1.0)
[2020-04-07 02:03] LABS: BASOPHILS % 1.4 % (0.0-2.0); EOSINOPHILS % 0.5 % (0.0-5.0); HEMATOCRIT. 40.9 % (36.0-48.0); LYMPHOCYTES % 18.7 % (20.0-50.0); MEAN CORPUSCULAR HEMOGLOBIN 32.5 pg (28.0-32.0); MEAN CORPUSCULAR VOLUME 94.9 fL (81.0-99.0); MEAN PLATELET VOLUME 8.1 fl (7.4-10.4); MONOCYTES % 8.2 % (2.0-8.0); NEUTROPHILS % 71.2 % (40.0-76.0); PLATELET 197 x1000/uL (130-400); RED BLOOD CELL COUNT 4.31 mill/uL (4.2-5.4); RED CELL DISTRIBUTION WIDTH 14.3 % (11.6-14.6)
[2020-04-07 02:09] LABS: *AMPHETAMINES SCREEN URINE NEGATIVE (NEGATIVE); *BARBITURATES SCREEN URINE NEGATIVE (NEGATIVE); *BENZODIAZEPINES SCREEN URINE NEGATIVE (NEGATIVE); *COCAINE SCREEN URINE NEGATIVE (NEGATIVE); METHADONE URINE SCREEN NEGATIVE (NEGATIVE); OPIATES URINE SCREEN NEGATIVE (NEGATIVE)
[2020-04-07 02:11] LABS: CANNABINOID URINE SCREEN NEGATIVE (NEGATIVE); PHENCYCLIDINE URINE SCREEN NEGATIVE (NEGATIVE)
[2020-04-07 02:11] LABS: CHLORIDE 106 mEq/L (98-107)
[2020-04-07 02:40] LABS: ETHANOL BLOOD 331 mg/dL
[2020-04-07 02:46] LABS: HCG SCREEN NEGATIVE
[2020-04-07] MEDS ORDERED: FAMOTIDINE 20MG TABLET PO NR (04:00)
[2020-04-07 06:30] VITALS: BP 122/74
== END 2020-04-07 06:57 | disposition home or self-care (01) ==
LOC: ER 22:35
DX: F10.229 Alcohol dependence with intoxication, unspecified (principal); Y90.8 Blood alcohol level of 240 mg/100 ml or more; R00.0 Tachycardia, unspecified; R03.0 Elevated blood-pressure reading, without diagnosis of hypertension; R79.89 Other specified abnormal findings of blood chemistry; Z87.19 Personal history of other diseases of the digestive system
CPT/HCPCS: 36415; 80053; 80305; 80320; 81003; 81025; 84703; 85025; 93005; 99285; G0480

== ENCOUNTER 2020-08-13 17:42 | Emergency (ER) | payer OTHER ==
[~2020-08-13] VITALS: Ht 157.5 cm; Wt 64.0 kg
[2020-08-13] MEDS ORDERED: SODIUM CHLORIDE 0.9% 1,000 ML IV ONE (19:00)
[2020-08-13] MEDS ORDERED: LORAZEPAM 2MG/ML CPJ IV ONE (19:00)
[2020-08-13] MEDS ORDERED: FOLIC ACID 1 MG, THIAMINE HCL 100 MG in DEXTROSE 5% WATER 1,000 ML IV SCH (19:00)
[2020-08-13] MEDS ORDERED: FOLIC ACID 1 MG, THIAMINE HCL 100 MG, MVI, ADULT NO.1 10 ML in DEXTROSE 5% WATER 1,000 ML IV ONE (19:00)
[2020-08-13] MEDS ORDERED: MULTIVITAMINS,THER W-MINERALS TABLET PO NR (19:00)
[2020-08-13 19:04] LABS: BASOPHILS % 1.1 % (0.0-2.0); EOSINOPHILS % 0.2 % (0.0-5.0); HEMATOCRIT. 46.1 % (36.0-48.0); HEMOGLOBIN. 15.2 g/dL (12.0-16.0); LYMPHOCYTES % 23.9 % (20.0-50.0); MEAN CORPUSCULAR HEMOGLOBIN 31.5 pg (28.0-32.0); MEAN CORPUSCULAR VOLUME 95.2 fL (81.0-99.0); MEAN PLATELET VOLUME 9.2 fl (7.4-10.4); MONOCYTES % 7.2 % (2.0-8.0); NEUTROPHILS % 67.6 % (40.0-76.0); PLATELET 248 x1000/uL (130-400); RED BLOOD CELL COUNT 4.84 mill/uL (4.2-5.4)
[2020-08-13 19:08] LABS: CHLORIDE 105 mEq/L (98-107)
[2020-08-13 19:11] LABS: HCG SCREEN NEGATIVE
[2020-08-13 19:24] LABS: ETHANOL BLOOD 467 mg/dL
[2020-08-13] MEDS ORDERED: AZITHROMYCIN 500 MG TABLET PO ONE (19:45)
[2020-08-13] MEDS ORDERED: CEFTRIAXONE SODIUM 500 MG/VIAL IM ONE (19:45)
[2020-08-14] MEDS ORDERED: FOLIC ACID 1 MG, THIAMINE HCL 100 MG, MVI, ADULT NO.1 10 ML in DEXTROSE 5% WATER 1,000 ML IV ONE (11:15)
[2020-08-14] MEDS ORDERED: FOLIC ACID 1 MG, THIAMINE HCL 100 MG in DEXTROSE 5% WATER 1,000 ML IV ONE (11:15)
[2020-08-14] MEDS ORDERED: LORAZEPAM 2MG/ML CPJ IV ONE ×2 (11:15→13:00)
[2020-08-14] MEDS ORDERED: MULTIVITAMINS,THER W-MINERALS TABLET PO SCH (11:30)
[2020-08-14] MEDS: LORAZEPAM 2MG/ML CPJ IV SCH ×2 (11:59→12:00)
[2020-08-14 12:31] LABS: *AMPHETAMINES SCREEN URINE NEGATIVE (NEGATIVE); *BARBITURATES SCREEN URINE NEGATIVE (NEGATIVE); *BENZODIAZEPINES SCREEN URINE NEGATIVE (NEGATIVE); *COCAINE SCREEN URINE NEGATIVE (NEGATIVE)
[2020-08-14 12:33] LABS: CANNABINOID URINE SCREEN NEGATIVE (NEGATIVE); METHADONE URINE SCREEN NEGATIVE (NEGATIVE); OPIATES URINE SCREEN NEGATIVE (NEGATIVE); PHENCYCLIDINE URINE SCREEN NEGATIVE (NEGATIVE)
[2020-08-14 13:44] LABS: HCG SCREEN NEGATIVE
[2020-08-14 14:49] VITALS: BP 116/80
== END 2020-08-14 15:36 | disposition home or self-care (01) ==
LOC: ER 17:42
DX: F10.229 Alcohol dependence with intoxication, unspecified (principal); Y90.8 Blood alcohol level of 240 mg/100 ml or more; Z90.49 Acquired absence of other specified parts of digestive tract; Z87.19 Personal history of other diseases of the digestive system
CPT/HCPCS: 36415; 80053; 80305; 80320; 84703; 85025; 93005; 96361; 96365; 96366; 96372; 96375; 96376; 99285; J0696; J2060; J3411; J3490; J7030; J7070; Z7610; G0480

== ENCOUNTER 2020-10-23 05:53 | Emergency (ER) | payer OTHER ==
[~2020-10-23] VITALS: Ht 154.9 cm; Wt 54.0 kg
[2020-10-23 06:30] VITALS: BP 115/78
== END 2020-10-23 07:05 | disposition home or self-care (01) ==
LOC: ER 06:00
DX: F10.229 Alcohol dependence with intoxication, unspecified (principal); Y90.9 Presence of alcohol in blood, level not specified
CPT/HCPCS: 99283

== ENCOUNTER 2020-10-26 03:46 | Emergency (ER) | payer OTHER ==
[~2020-10-26] VITALS: Ht 160 cm; Wt 54.0 kg
[2020-10-26] MEDS ORDERED: SODIUM CHLORIDE 0.9% 1,000 ML IV ONE ×2 (04:30→06:00)
[2020-10-26] MEDS ORDERED: LORAZEPAM 1MG TABLET PO ONE (04:30)
[2020-10-26 04:39] LABS: BASOPHILS % 0.8 % (0.0-2.0); HEMATOCRIT. 38.3 % (36.0-48.0); HEMOGLOBIN. 12.9 g/dL (12.0-16.0); LYMPHOCYTES % 10.4 % (20.0-50.0); MEAN CORPUSCULAR HEMOGLOBIN 31.5 pg (28.0-32.0); MEAN CORPUSCULAR VOLUME 93.7 fL (81.0-99.0); MEAN PLATELET VOLUME 8.9 fl (7.4-10.4); MONOCYTES % 8.7 % (2.0-8.0); NEUTROPHILS % 80.1 % (40.0-76.0); PLATELET 126 x1000/uL (130-400); RED BLOOD CELL COUNT 4.09 mill/uL (4.2-5.4)
[2020-10-26 04:44] LABS: CHLORIDE 104 mEq/L (98-107)
[2020-10-26 04:47] LABS: ETHANOL BLOOD < 10 mg/dL
[2020-10-26] MEDS ORDERED: ONDANSETRON HCL 4MG/2ML INJ IV ONE (05:15)
[2020-10-26] MEDS ORDERED: CHLORDIAZEPOXIDE 25MG CAPSULE PO ONE (05:45)
[2020-10-26] MEDS ORDERED: ONDA4TAB5 MT (05:45)
[2020-10-26 07:20] VITALS: BP 118/84
== END 2020-10-26 07:48 | disposition home or self-care (01) ==
LOC: ER 03:46
DX: F10.239 Alcohol dependence with withdrawal, unspecified (principal); Y90.0 Blood alcohol level of less than 20 mg/100 ml; F17.290 Nicotine dependence, other tobacco product, uncomplicated; Z79.899 Other long term (current) drug therapy
CPT/HCPCS: 36415; 80053; 80320; 83690; 85025; 93005; 96361; 96374; 99284; J2405; J7030; G0480

== ENCOUNTER 2020-11-20 00:29 | Emergency (ER) | payer OTHER ==
[~2020-11-20] VITALS: Ht 160 cm; Wt 63.0 kg
[~2020-11-20 00:29] MED LIST changes: +ONDA4TAB5 MT
[2020-11-20 00:33] VITALS: BP 158/90
[2020-11-20] MEDS ORDERED: ONDANSETRON 4MG ODT PO ONE (00:45)
[2020-11-20] MEDS ORDERED: ACETAMINOPHEN 500MG TABLET PO ONE (00:45)
== END 2020-11-20 00:58 | disposition home or self-care (01) ==
LOC: ER 00:29
DX: F15.10 Other stimulant abuse, uncomplicated (principal); F14.10 Cocaine abuse, uncomplicated; M79.10 Myalgia, unspecified site; F10.10 Alcohol abuse, uncomplicated; Y90.9 Presence of alcohol in blood, level not specified
CPT/HCPCS: 99283; Q0162

== ENCOUNTER 2024-12-14 23:06 | Emergency (ER) | payer OTHER ==
[~2024-12-14] VITALS: Ht 154.9 cm; Wt 52.0 kg
[~2024-12-14 23:06] MED LIST changes: +ACET-3163 MT; -ACET650T37 MT; +CHLO25CA11 PO; -L25 PO; +ONDA-239 PO; -ONDA4TAB11 PO
[2024-12-14 23:36] VITALS: TEMP 36.6; O2SAT 100
[2024-12-15 01:22] LABS: BASOPHILS % 0.5 % (0.0-2.0); EOSINOPHILS % 1.6 % (0.0-5.0); HEMATOCRIT. 36.1 % (36.0-48.0); HEMOGLOBIN. 12.4 g/dL (12.0-16.0); LYMPHOCYTES % 20.2 % (20.0-50.0); MEAN CORPUSCULAR HEMOGLOBIN 30.7 pg (28.0-32.0); MEAN CORPUSCULAR HGB CONC 34.2 g/dL (31.0-37.0); MEAN CORPUSCULAR VOLUME 89.7 fL (81.0-99.0); MEAN PLATELET VOLUME 8.7 fl (7.4-10.4); MONOCYTES % 7.3 % (2.0-8.0); NEUTROPHILS % 70.4 % (40.0-76.0); PLATELET 347 x1000/uL (130-400); RED BLOOD CELL COUNT 4.02 mill/uL (4.2-5.4); RED CELL DISTRIBUTION WIDTH 13.2 % (11.6-14.6)
[2024-12-15 01:29] LABS: CHLORIDE 102 mEq/L (98-107); POTASSIUM 3.9 mEq/L (3.5-5.1); SODIUM 141 mEq/L (136-145)
[2024-12-15 01:30] LABS: CALCIUM 9.7 mg/dL (8.7-10.4); CARBON DIOXIDE 28 mEq/L (21-32)
[2024-12-15 01:35] LABS: CREATININE 0.7 mg/dL (0.6-1.0); GLUCOSE 107 mg/dL (70-105); UREA NITROGEN BLOOD 13 mg/dL (9-23)
[2024-12-15] MEDS: KETOROLAC 30MG/ML VIAL IM ONE (01:47)
[2024-12-15] MEDS: LORAZEPAM 1MG TABLET PO ONE (01:48)
[2024-12-15] MEDS ORDERED: LORA-250 MT (02:34)
[2024-12-15 02:46] VITALS: BP 101/65; PULSE 82; RESP 18; O2SAT 99
== END 2024-12-15 02:47 | disposition home or self-care (01) ==
LOC: ER 23:06
DX: F41.9 Anxiety disorder, unspecified (principal); Z79.899 Other long term (current) drug therapy
CPT/HCPCS: 99284; 81025; 80048; 85025; 36415; 93005; 96372; J1885